=== PATIENT | male | born 1990 | race Two or more races ===

== ENCOUNTER 2024-01-28 08:01 | Emergency (ER) | payer OTHER ==
--- NOTE | 2024-01-28 08:17 | ED Physician Documentation ---
PD HPI HEADACHE - Stated complaint Stated Complaint: N/V, HEADACHE,BLURRY VIS - Chief complaint Chief Complaint: Neuro - History obtained from History obtained from: Patient - History of Present Illness Timing - onset: Today Timing - onset during: Rest, Light activity Timing - details: Abrupt onset, Still present Worst headache ever?: No: Worst headache ever? Location: Back, Right Review of Systems Constitutional: denies: Fever, Chills Eyes: denies: Loss of vision, Photophobia Nose: denies: Rhinorrhea / runny nose, Congestion Throat: denies: Sore throat Respiratory: denies: Cough Neurologic: denies: Focal weakness, Numbness, Confused, Altered mental status PD PAST MEDICAL HISTORY - Past Medical History Past Medical History: Yes Neuro: Migraines - Past Surgical History Past Surgical History: Yes General: Cholecystectomy, Appendectomy - Present Medications Home Medications: Ambulatory Orders Medication Instructions Recorded Confirmed Promethazine [Phenergan] 25 mg PO Q6H PRN 01/28/24 01/28/24 SUMAtriptan [Imitrex] 25 mg PO ONCE PRN 01/28/24 01/28/24 - Allergies Allergies/Adverse Reactions: Allergies Allergy/AdvReac Type Severity Reaction Status Date / Time No Known Drug Allergies Allergy Verified 01/28/24 08:10 - Social History Does the pt smoke?: No Smoking Status: Never smoker Does the pt drink ETOH?: No Does the pt have substance abuse?: No - Immunizations Immunizations are current?: Yes PD ED PE NORMAL - Vitals Vital signs reviewed: Yes - General General: Alert and oriented X 3, Well developed/nourished, Other (appears uncomfortable due to headache. ) - HEENT HEENT: Atraumatic - Neck Neck: Supple, no meningeal sign, No bony TTP, No adenopathy, Other (no tender/trigger points in upper trapezius nor occipital ridge/nerve outlet area. Not skin tenderness on scalp. 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 ) PD Medical Decision Making - ED course Complexity details: reviewed results (head CT without acute findings. Gien onset just in past few hours, CT alone should be adequate screening for ICH without needing LP per EM articles. ), re-evaluated patient (much improved with IV fluids and migraine targeted meds of Toradol, fluids, inapsine, and imitrex. Still some pain in occiput area without tenderness/trigger point. Gave dilaudid and lido patch, as some muscular possible. CT head without acute findings. ), considered differential (history of migraines 1-2 per month but current one is different character and onset, without the usual light/noise sensitiveity and more nausea to it. Similar intensity. ), d/w patient Departure - Departure Disposition: 01 Home, Self Care Clinical Impression: Acute headache Condition: Stable Instructions: ED Cephalgia Unspecified, ED Headache Migraine Follow-Up: IRIS PELLETIER MD [Primary Care Provider] - Comments: Your head CT scan does not show any signs of acute bleeding, swelling, masses/tumors. Otherwise your headache does not sound infectious necessarily and you did not have any recent injury. No other obvious cause so I would presume an atypical migraine for this headache. Recheck if not improved over the next day or 2 and back to your normal self. It may be possible that you develop cold-like symptoms in the next couple of days with congestion and sore throat cough or such. If so that may account for the atypical migraine. Otherwise follow-up with your primary care or back to the ER if persistent or severe again. Subsequent migraines I would anticipate to be more your normal pattern as it is not unusual to have an occasional atypical migraine and does not usually for shadow pattern of more severe ones. Continue usual migraine medicines for subsequent regular headaches. Home and rest and lay low today. Tylenol or ibuprofen as needed. You can keep the patch on the neck area for some muscular type pain through the day and overnight. Forms: PCP List, Activity restrictions Discharge Date/Time: 01/28/24 10:42
[2024-01-28] MEDS: KETOROLAC 15 MG/ML VIAL IVP STA (08:42)
[2024-01-28] MEDS: DROPERIDOL 5 MG/2 ML VIAL IVP STA (08:42)
[2024-01-28] MEDS: SUMAtriptan 6 MG/0.5 ML VIAL SUBQ STA (08:43)
[2024-01-28] MEDS: SODIUM CHLORIDE 0.9% 1,000 ML IV STA (08:43)
--- NOTE | 2024-01-28 09:35 | CT Report ---
PROCEDURE: CT brain without contrast INDICATIONS: abrupt severe DOSHI this morning TECHNIQUE: Helical axial CT of the brain was obtained without contrast and reformatted in multiple p lanes. Radiation dose reduction was achieved using automated exposure control or adjustment of mA and /or kV according to patient size. COMPARISON: None FINDINGS: CSF spaces: Ventricles are appropriate in size and position. No hydrocephalus. Basal cisterns unre markable. Brain: No midline shift. No intracranial masses or hemorrhage. Pierre-white matter interface is norm al. Skull and face: Calvarium and skull base are unremarkable without suspicious lesion. Sinuses: Visualized sinuses and mastoids are clear. IMPRESSION: Unremarkable CT of the brain Reviewed by: Corby Bruno MD on 01/28/2024 8:33 AM [facility] Approved by: Corby Bruno MD on 01/28/2024 8:33 AM [facility] Station ID: [id number]
[2024-01-28] MEDS: LIDOCAINE PATCH 5% TOP STA (10:22)
[2024-01-28] MEDS: HYDROmorphone 0.5 MG/0.5 ML SYRINGE IVP STA (10:23)
[2024-01-28 10:44] VITALS: BP 137/76; O2SAT 99
== END 2024-01-28 10:42 | disposition home or self-care (01) ==
LOC: ED 08:01 → EDBD 08:01 → ED 10:42
DX: R51.9 Headache, unspecified (principal)
CPT/HCPCS: 36415; 70450; 96372; 96374; 96375; 99284; 99285; A9270; J1170